=== PATIENT | male | born 1965 | race Caucasian/White ===

== ENCOUNTER 2020-01-12 12:30 | Emergency (ER) | payer OTHER, SELFPAY ==
[2020-01-12 12:31] VITALS: BP 216/129; PULSE 77; RESP 20; TEMP 36.7; O2SAT 97; BMI 29.5
--- NOTE | 2020-01-12 12:41 | CT_ITS ---
STUDY: CT BRAIN WITHOUT CONTRAST REASON FOR EXAM: Male, 54 years old. TRAUMA RADIATION DOSAGE (If Supplied By Facility): CTDIvol = ( 44.99 ) mGy, DLP = ( 863.60 ) mGycm TECHNIQUE: Transaxial CT imaging of the brain was performed without administration of intravenous contrast material. Individualized dose optimization techniques were used for this CT. COMPARISON: No relevant priors. FINDINGS: Normal soft tissue structures. Normal calvarium. Normal size ventricles and extra-axial spaces for the patient''s age. Normal white matter tracts of the cerebral hemispheres. Normal basal ganglia and thalami. Normal brainstem. Normal cerebellum. There is no intracranial hemorrhage. There are no findings of an acute ischemic infarction. Mild mucosal thickening of the right maxillary sinus. Partial opacification of the ethmoid sinuses bilaterally. CT/Brain/Head without Contrast IMPRESSION: No acute abnormality is seen. Electronically Signed: Nathan Soares, at 13:31 EDT , Service support ,
--- NOTE | 2020-01-12 12:41 | CT_ITS ---
STUDY: CT LUMBAR SPINE WITHOUT CONTRAST REASON FOR EXAM: Male, 54 years old. TRAUMA, RT SIDE LUMBAR PAIN RADIATION DOSAGE (If Supplied By Facility): CTDIvol = ( 30.85 ) mGy, DLP = ( 1243.36 ) mGycm TECHNIQUE: The patient was scanned in a multi detector CT scanner. High resolution transaxial imaging was performed. Images were obtained from T12 to S1 vertebral level. Sagittal and coronal images were reconstructed. Individualized dose optimization techniques were used for this CT. COMPARISON: None FINDINGS: Normal lumbar lordosis. There is no substantial scoliosis. Normal vertebrae of the lumbar spine. L1-2: Normal endplates. Normal disc height and morphology. Normal bilateral facet joints. Normal central canal and bilateral lateral recesses. Normal bilateral intervertebral neural foramina. L2-3: Mild degree of disc space narrowing. Anterior spondylosis. Mild degree of diffuse posterior disc bulge. Mild degree of bilateral neural foraminal stenosis. L3-4: Mild degree of disc space narrowing. Mild degree of diffuse posterior disc bulge. Mild to moderate degree of neural foraminal stenosis worse on the left side. L4-5: Moderate degree of disc space narrowing and disc degeneration. Mild degree of diffuse posterior disc bulge. L5-S1: Moderate degree of disc space narrowing and disc degeneration. No significant stenosis is seen. Normal visualized paraspinous soft tissue structures. CT/Spine Lumbar without Contrast IMPRESSION: Multilevel degenerative changes, as described above. Electronically Signed: Nathan Soares, at 13:43 EDT , Service support ,
--- NOTE | 2020-01-12 12:41 | CT_ITS ---
STUDY: CT CERVICAL SPINE WITHOUT CONTRAST REASON FOR EXAM: Male, 54 years old. TRAUMA RADIATION DOSAGE (If Supplied By Facility): CTDIvol = ( 25.09 ) mGy, DLP = ( 477.69 ) mGycm TECHNIQUE: High resolution transaxial imaging was performed without contrast material. Sagittal and coronal images were reconstructed. Individualized dose optimization techniques were used for this CT. COMPARISON: None FINDINGS: Small amount of the soft tissue density is seen in the right external auditory canal. Normal craniovertebral junction. Normal anterior atlantoaxial articulation. Normal odontoid process. There is straightening of the normal cervical lordosis. Normal vertebral bodies and posterior osseous elements. C2-3: Normal endplates. Normal disc height and morphology. Normal central canal and intervertebral neuroforamina. C3-4: Moderate degree of disc space narrowing. Anterior spondylosis. Uncovertebral arthrosis. C4-5: Moderate degree of disc space narrowing. Anterior spondylosis. Uncovertebral arthrosis worse on the left side causing a mild degree of neural foraminal stenosis. C5-6: Moderate degree of disc space narrowing. Anterior and posterior spondylosis. The posterior spondylosis is on the left side of the midline causing a moderate to severe degree of left neural foraminal stenosis. C6-7: Moderate degree of disc space narrowing. Anterior spondylosis. No significant neural foraminal stenosis seen. C7-T1: Normal endplates. Normal disc height and morphology. Normal central canal and intervertebral neuroforamina. Normal visualized soft tissue structures. CT/Spine Cervical without Contras IMPRESSION: Multilevel degenerative changes, as described above. Moderate to severe degree of left neural foraminal stenosis at the C5-C6 level. Electronically Signed: Nathan Soares, at 13:47 EDT , Service support ,
--- NOTE | 2020-01-12 12:43 | ED.VISSUMM ---
- ER Visit Summary Date of Service: 01/12/20 Chief Complaint: Head trauma, low back pain History of Present Illness: The patient is a 54 M who presents after head trauma and fall. [place] here [place] the hospital when he fell approximately 4 feet and a 1600 pound load fell onto his head. He denies any LOC. He has pain in the lumbar area as well. Denies any cervical spine or thoracic area pain. No blurry vision or double vision. His last tetanus is unknown. Physical Examination: Vital signs are reviewed. HEENT exam reveals an abrasion to the left forehead. Face exam reveals no trauma. His cervical spine has a c-collar in place. He has no tenderness in the cervical spine area. Heart is regular rate and rhythm. Lungs are clear. Chest and abdomen are nontender. No traumatic injury. Back exam reveals no cervical or thoracic tenderness. He does have diffuse lumbar tenderness as well. Skin exam reveals the abrasion on the forehead but no other findings. His GCS is 15. He has equal strength and sensation bilaterally. Test Results: CAT scan of the head reveals no acute findings. CAT scan of the cervical spine and lumbar spine reveal degenerative changes. Patient was given fentanyl and a tetanus update. He is low back pain is likely from muscle strain from the accident. Patient will be discharged with some naproxen to help with his pain. He will use ice on any areas that are sore. He will follow-up with his PCP. Emergency Department Course and Treatment: [] Treatment Plan: Discharge Disposition: [] Discharge Impression: Lumbar strain, closed head injury This note was generated with [employer] dictation software. It may contain incorrect words, spelling, and punctuation that were not noted in review of the chart prior to signing ED Disposition - Plan for ED Patient: Disposition: Home or Assisted Living Instructions: ED LUMBAR SPRAIN/STRAIN Prescriptions: Naproxen [Naprosyn] 500 mg PO BID PRN #20 tab Transmission Status: Pending to [facility] Referrals: NOT,DEFINED [NON-STAFF] -
[2020-01-12] MEDS: Diphth,Pertuss(Acell),Tet Vac 0.5 ML Vial IM (12:55)
[2020-01-12] MEDS: fentaNYL 100 MCG/2 ML Ampul 50 MCG IV (12:56)
[2020-01-12 14:35] VITALS: BP 192/113; PULSE 72; PULSE 73; RESP 18; O2SAT 96; O2SAT 97
[2020-01-12 15:09] VITALS: BP 192/113; PULSE 73; RESP 18; O2SAT 97
--- NOTE | 2020-01-12 17:36 | ED.DCSUM_ITS ---
- ER Visit Summary Date of Service: 01/12/20 Chief Complaint: [] History of Present Illness: The patient is a 54 M [] Physical Examination: [] Test Results: [ Diagnostic Data Brain CT 01/12/20 12:41 IMPRESSION: No acute abnormality is seen. Electronically Signed: Nathan Rodger, at 13:31 EDT , Service support , Cervical Spine CT 01/12/20 12:41 IMPRESSION: Multilevel degenerative changes, as described above. Moderate to severe degree of left neural foraminal stenosis at the C5-C6 level. Electronically Signed: Nathan Soares, at 13:47 EDT , Service support , Lumbar Spine CT 01/12/20 12:41 IMPRESSION: Multilevel degenerative changes, as described above. Electronically Signed: Nathan Soares, at 13:43 EDT , Service support , ADDENDUM: 01/12/20 1541 ] Emergency Department Course and Treatment: [] Treatment Plan: [] Disposition: [] Impression: [] Patient was previously evaluated by Dr. Street. CT was initially read as no acute process of the lumbar spine. After the patient was discharged it was noted that patient actually had transverse process fracture of L1-L3, nondisplaced. I was informed of this. Patient was contacted and informed of this. He is given spine follow-up with [facility]. He is called a prescription for R[place]en for further pain control. Patient agreeable with this. He is otherwise doing well at home right now. This note was generated with [employer] dictation software. It may contain incorrect words, spelling, and punctuation that were not noted in review of the chart prior to signing ED Disposition - Plan for ED Patient: Disposition: Home or Assisted Living Diagnosis: Lumbar transverse process fracture Instructions: ED LUMBAR SPRAIN/STRAIN Prescriptions: Naproxen [Naprosyn] 500 mg PO BID PRN #20 tab Transmission Status: Received by [facility] Hydrocodone Bitart/Apap 5-325 [Remsen 5MG-325MG] 1 tab PO Q6H PRN PRN 3 Days #12 tab PRN Reason: Pain Transmission Status: Received by [facility] Referrals: NOT,DEFINED [NON-STAFF] -
== END 2020-01-12 15:12 | disposition home or self-care (01) ==
PROVIDERS: Emergency Provider Emergency Medicine
DX: S00.81XA Abrasion of other part of head, initial encounter (principal); S39.012A Strain of muscle, fascia and tendon of lower back, initial encounter; W17.89XA Other fall from one level to another, initial encounter; W20.8XXA Other cause of strike by thrown, projected or falling object, initial encounter; Y93.89 Activity, other specified; Y92.89 Other specified places as the place of occurrence of the external cause; Y99.0 Civilian activity done for income or pay; I10 Essential (primary) hypertension; Z72.0 Tobacco use
CPT/HCPCS: 70450; 72125; 72131; 90471; 90715; 99285